=== PATIENT | male | born 1995 | race African-American/Black ===

== ENCOUNTER 2017-05-06 14:15 | Emergency (ER) | payer OTHER ==
[~2017-05-06] VITALS: Ht 185.4 cm; Wt 79.5 kg
[2017-05-06] MEDS ORDERED: OXYC1TAB23 PO (14:28)
[2017-05-06] MEDS ORDERED: IBUP1TAB7 PO (14:28)
[2017-05-06] MEDS ORDERED: AMPICILLIN SOD/SULBACTAM SOD 3 GM in D5W MINI-BAG PLUS 100 ML IV ONE (16:45)
[2017-05-06] MEDS ORDERED: MORPHINE 4 MG/ML 1ML SYRINGE IV ONE (16:45)
[2017-05-06] MEDS ORDERED: ONDANSETRON 4MG/2ML VIAL (J2405) IV ONE (16:45)
[2017-05-06 18:04] LABS: MEAN CORPUSCULAR HEMOGLOBIN 27.5 pg (27.0-33.0); MEAN CORPUSCULAR HGB CONC 32.4 g/dl (32.0-36.5); MEAN CORPUSCULAR VOLUME 84.9 fl (80.0-96.0); RED CELL DISTRIBUTION WIDTH 13.1 % (11.5-14.5)
[2017-05-06] MEDS ORDERED: ISOVUE-370 76% 100ML VIAL (Q9967) As Ordered ONE (18:21)
--- NOTE | 2017-05-06 19:10 | REPUSA ---
Clinical history: right mandibular swelling. Technique: Multiple axial CT images were obtained from the base of the skull to the upper thorax afte r administration of contrast. Coronal and sagittal reconstructions were also obtained. Findings: The visualized paranasal sinuses are clear. The pterygopalatine fossa, pterygoid plates and pterygoid muscles are unremarkable. The mucosa of the naso- and oropharynx appears unremarkable. The hypopharynx and larynx show no pathology. The visualized osseous structures are intact. The airway i s patent. No focal mass is appreciated. There is no evidence of lymphadenopathy. The thyroid gland ap pears unremarkable. The superficial soft tissues are unremarkable. Impression: Unremarkable CT examination of the soft tissues of the neck.
[2017-05-06] MEDS ORDERED: AMOX500C PO (19:22)
[2017-05-06 19:46] VITALS: BP 121/64
== END 2017-05-06 19:58 | disposition home or self-care (01) ==
LOC: M ED 14:15
DX: G89.18 Other acute postprocedural pain (principal); R22.0 Localized swelling, mass and lump, head; K08.409 Partial loss of teeth, unspecified cause, unspecified class
CPT/HCPCS: 70491; 85027; 96365; 96366; 96375; 99283; J2405; Q9967

== ENCOUNTER 2017-10-27 11:33 | Emergency (ER) | payer OTHER ==
[2017-10-27 14:26] LABS: CHLAMYDIA DNA AMPLIFICATION NEGATIVE (NEGATIVE); GC DNA AMPLIFICATION NEGATIVE (NEGATIVE)
[2017-10-29 10:21] LABS: HEPATITIS B SURFACE ANTIBODY POSITIVE (POSITIVE)
[2017-10-29 10:31] LABS: HEPATITIS B SURFACE ANTIGEN NEGATIVE (NEGATIVE)
[2017-10-29 10:58] LABS: HIV 1&2 SCREEN CENTAUR NEGATIVE (NEGATIVE)
== END 2017-10-27 13:21 | disposition home or self-care (01) ==
LOC: M ED 11:33
DX: Z11.3 Encounter for screening for infections with a predominantly sexual mode of transmission (principal); Z72.51 High risk heterosexual behavior
CPT/HCPCS: 86706

== ENCOUNTER 2018-09-04 17:17 | Emergency (ER) | payer OTHER ==
[2018-09-04] MEDS: AZITHROMYCIN 250 MG TAB PO (17:45)
[2018-09-04] MEDS: LIDOCAINE 1% SDV 5 ML VIAL DILUENT (17:45)
[2018-09-04] MEDS: cefTRIAXone SOD 250 MG VIAL (J0696) IM (17:45)
[2018-09-04 19:40] LABS: CHLAMYDIA DNA AMPLIFICATION NEGATIVE (NEGATIVE); GC DNA AMPLIFICATION NEGATIVE (NEGATIVE)
[2018-09-06 10:37] LABS: HEPATITIS C VIRUS ABY INDEX 0.1 INDEX (<0.8)
[2018-09-06 10:37] LABS: HEPATITIS B SURFACE ANTIBODY POSITIVE (POSITIVE); HEPATITIS B SURFACE ANTIGEN NEGATIVE (NEGATIVE); HIV 1&2 SCREEN CENTAUR NEGATIVE (NEGATIVE)
== END 2018-09-04 18:11 | disposition home or self-care (01) ==
LOC: M ED 17:17
DX: Z20.2 Contact with and (suspected) exposure to infections with a predominantly sexual mode of transmission (principal)
CPT/HCPCS: J0696

== ENCOUNTER 2018-09-06 11:16 | Emergency (ER) | payer OTHER ==
[2018-09-06] MEDS: METOCLOPRAMIDE INJ 10MG/2ML VIAL (J2765) IV (12:24)
[2018-09-06] MEDS: NS 1,000 ML IV (12:24)
[2018-09-06] MEDS: diphenhydrAMINE INJ 50MG/ML VIAL (J1200) IV (12:24)
[2018-09-06] MEDS: KETOROLAC 30 MG/ML VIAL (J1885) IV (12:24)
== END 2018-09-06 13:28 | disposition home or self-care (01) ==
LOC: M ED 11:16
DX: G43.909 Migraine, unspecified, not intractable, without status migrainosus (principal)
CPT/HCPCS: J1200

== ENCOUNTER 2019-01-19 18:50 | Emergency (ER) | payer OTHER ==
[~2019-01-19] VITALS: Ht 185.4 cm; Wt 86.4 kg
[~2019-01-19 18:50] MED LIST: AMOX500C PO; IBUP1TAB7 PO; OXYC1TAB23 PO
[2019-01-19] MEDS ORDERED: CELE40TA PO (18:57)
[2019-01-19] MEDS ORDERED: KETOROLAC TROMETHAMINE 10 MG TAB PO ONE (20:00)
[2019-01-19] MEDS ORDERED: BACLOFEN 10 MG TAB PO ONE (20:00)
[2019-01-19] MEDS ORDERED: KETO10TAB PO (20:57)
[2019-01-19] MEDS ORDERED: CYCL5TAB PO (20:57)
[2019-01-19] MEDS ORDERED: CYCLOBENZAPRINE 10 MG TAB PO ONE (21:00)
[2019-01-19 21:06] VITALS: BP 133/88
== END 2019-01-19 21:08 | disposition home or self-care (01) ==
LOC: M ED 18:50
DX: M54.5 Low back pain (principal); F33.9 Major depressive disorder, recurrent, unspecified; Z79.899 Other long term (current) drug therapy

== ENCOUNTER 2019-02-28 00:32 | Emergency (ER) | payer OTHER ==
[~2019-02-28] VITALS: Ht 185.4 cm; Wt 88.2 kg
[~2019-02-28 00:32] MED LIST changes: +CELE40TA PO; +CYCL5TAB PO; +KETO10TAB PO
[2019-02-28] MEDS ORDERED: ACYC400T PO (01:53)
[2019-02-28] MEDS ORDERED: ACYCLOVIR 200 MG CAPSULE PO ONE (02:00)
[2019-02-28 02:09] VITALS: BP 120/77
[2019-02-28 03:14] LABS: CHLAMYDIA DNA AMPLIFICATION NEGATIVE (NEGATIVE); GC DNA AMPLIFICATION NEGATIVE (NEGATIVE)
== END 2019-02-28 02:12 | disposition home or self-care (01) ==
LOC: M ED 00:32
DX: A60.01 Herpesviral infection of penis (principal); Z79.899 Other long term (current) drug therapy

== ENCOUNTER 2019-11-16 09:38 | Emergency (ER) | payer OTHER ==
[~2019-11-16] VITALS: Ht 185.4 cm; Wt 81.8 kg
[~2019-11-16 09:38] MED LIST changes: +ACYC400T PO; +TIMOLOL MALEATE 0.5% OPHTH SOLN 5 ML OU SCH
[2019-11-16] MEDS ORDERED: TRAZ-257 PO (10:08)
[2019-11-16] MEDS ORDERED: SILD100T PO (10:08)
[2019-11-16] MEDS ORDERED: ACET1TAB55 PO (10:08)
[2019-11-16] MEDS ORDERED: RIZA5TAB52 PO (10:08)
[2019-11-16] MEDS ORDERED: PARO10TA3 PO (10:08)
[2019-11-16] MEDS ORDERED: NAPHSOL OU (10:08)
[2019-11-16] MEDS ORDERED: TIZA2TA (10:08)
[2019-11-16] MEDS ORDERED: HYDR50CA2 PO (10:08)
[2019-11-16] MEDS ORDERED: TETRACAINE 0.5% OPHTH SOLN 4ML OU ONE (10:15)
[2019-11-16] MEDS ORDERED: FLUORESCEIN OPHTH 1 MG STRIP OU ONE (10:15)
[2019-11-16] MEDS ORDERED: NS 1,000 ML IV ONE (10:30)
[2019-11-16] MEDS ORDERED: KETOROLAC 30 MG/ML VIAL (J1885) IV ONE (10:30)
[2019-11-16] MEDS ORDERED: PILOCARPINE 2% OPHTH 15 ML SOLN OU ONE (10:45)
[2019-11-16 11:05] LABS: HEMATOCRIT 50.4 % (42.0-52.0); HEMOGLOBIN 15.5 g/dl (13.5-17.5); MEAN CORPUSCULAR HEMOGLOBIN 26.4 pg (27.0-33.0); MEAN CORPUSCULAR HGB CONC 30.8 g/dl (32.0-36.5); MEAN CORPUSCULAR VOLUME 85.9 fl (80.0-96.0); PLATELET COUNT, AUTOMATED 191 10^3/uL (150-450); RED BLOOD COUNT 5.87 10^6/uL (4.30-6.10)
[2019-11-16 11:22] LABS: ERYTHROCYTE SEDIMENTATION RATE 3 mm/hr (0-15)
[2019-11-16 11:36] LABS: BLOOD UREA NITROGEN 17 MG/DL (7-18); C REACTIVE PROTEIN QUANTITATIV 0.36 MG/DL (0.00-0.30); CALCIUM LEVEL 9.8 MG/DL (8.5-10.1); CARBON DIOXIDE LEVEL 29 MEQ/L (21-32); CHLORIDE LEVEL 106 MEQ/L (98-107); CREATININE FOR GFR 1.09 MG/DL (0.70-1.30); GLOMERULAR FILTRATION RATE > 60.0 (>60); GLUCOSE, FASTING 83 MG/DL (70-100); POTASSIUM SERUM 4.3 MEQ/L (3.5-5.1); SODIUM LEVEL 140 MEQ/L (136-145)
[2019-11-16 12:46] VITALS: BP 113/66
== END 2019-11-16 12:52 | disposition short-term general hospital (02) ==
LOC: M ED 09:38
DX: H40.9 Unspecified glaucoma (principal); F32.9 Major depressive disorder, single episode, unspecified; Z79.899 Other long term (current) drug therapy
CPT/HCPCS: 80048; 85027; 85652; 86140; 96361; 96374; 99284; J1885